=== PATIENT | female | born 1940 | race Caucasian/White ===

== ENCOUNTER → 2018-03-07 | Outpatient (CLI) | payer MEDICARE, OTHER ==
[2018-03-07 13:43] LABS: ANION GAP 11 (5-13); BLOOD UREA NITROGEN 18 mg/dl (7-20); CALCIUM 9.8 mg/dl (8.4-10.2); CARBON DIOXIDE 29 mmol/L (21-31); CHLORIDE 101 mmol/L (97-110); CREATININE 0.72 mg/dl (0.44-1.00); GLUCOSE 93 mg/dl (70-220); POTASSIUM 4.3 mmol/L (3.5-5.1); SODIUM 141 mmol/L (135-144)
== END | disposition home or self-care (01) ==
LOC: LAB 13:00
DX: R07.9 Chest pain, unspecified (principal)
CPT/HCPCS: 80048

== ENCOUNTER → 2018-06-06 | Outpatient (CLI) | payer MEDICARE, OTHER ==
[2018-06-06 09:43] LABS: ANION GAP 12 (5-13); BLOOD UREA NITROGEN 18 mg/dl (7-20); CALCIUM 10.1 mg/dl (8.4-10.2); CARBON DIOXIDE 33 mmol/L (21-31); CHLORIDE 96 mmol/L (97-110); CREATININE 0.74 mg/dl (0.44-1.00); GLUCOSE 118 mg/dl (70-220); POTASSIUM 4.6 mmol/L (3.5-5.1); SODIUM 141 mmol/L (135-144)
[2018-06-06] MEDS: NITROGLYCERIN AEROSOL (4.9 GM) (11:04)
[2018-06-06] MEDS: IOHEXOL 100 ML ×2 (11:18→11:59)
[2018-06-06] MEDS: SOD CHLORIDE 0.9% 100 ML ×2 (11:18→11:59)
[2018-06-06] MEDS: DIPHENHYDRAMINE 50 MG INJ (11:30)
[2018-06-06] MEDS: METOPROLOL 5 MG INJ (11:34)
== END | disposition home or self-care (01) ==
LOC: LAB 08:41
DX: R07.9 Chest pain, unspecified (principal); R94.39 Abnormal result of other cardiovascular function study
CPT/HCPCS: 75571; 75574; 80048